=== PATIENT | female | born 1975 | race African-American/Black ===

== ENCOUNTER 2016-12-10 14:29 | Emergency (ER) | payer MEDICAID ==
[~2016-12-10] VITALS: Ht 157.5 cm; Wt 66.0 kg
[~2016-12-10 14:29] MED LIST: HYDR-523 PO; LOV40 SQ; ZOLADEX SUBCUT
[2016-12-10 14:42] VITALS: BP 115/78
== END 2016-12-10 19:00 | disposition home or self-care (01) ==
LOC: ER 14:48
DX: M79.641 Pain in right hand (principal); M25.531 Pain in right wrist; Z85.3 Personal history of malignant neoplasm of breast; Z90.10 Acquired absence of unspecified breast and nipple; Z86.718 Personal history of other venous thrombosis and embolism
CPT/HCPCS: 29125; 73110; 73130; 81025; 99284